=== PATIENT | female | born 1995 | race Caucasian/White ===

== ENCOUNTER 2017-04-10 08:41 | Emergency (ER) | payer MEDICAID, OTHER ==
[~2017-04-10] VITALS: Wt 104.5 kg
[~2017-04-10 08:41] MED LIST: ACET1TAB40 PO; ACET325T33 PO; DOCU-144 PO; FER325 PO; IBUP-1542 PO; NITR-58 PO; TRAM50TA2 PO
[2017-04-10] MEDS ORDERED: ALBUTEROL 0.083% (NEB) 2.5 MG/3 ML AMP NEB STA (08:55)
[2017-04-10] MEDS ORDERED: IPRATROPIUM (NEB) 0.5 MG/2.5 ML AMP NEB STA (08:55)
[2017-04-10] MEDS ORDERED: ALBU8.5H3 INH (08:59)
--- NOTE | 2017-04-10 08:59 | ERD ---
ER Documentation Chief Complaint Date/Time DATE: 04/10/17 TIME: 08:58 Chief Complaint cough w sob HPI 22-year-old female with a history of asthma comes in with a dry cough for the past month and shortness of breath. She states that she ran out of her rescue inhaler about a month ago. Patient reports that the symptoms are worse when she is laying down at nighttime. She has not had any fevers, chills, chest pain. ROS All systems reviewed and are negative except as per history of present illness. Medications Home Meds Active Scripts Albuterol Sulfate* (Proair HFA*) 8.5 Gm Hfa.aer.ad, 2 PUFF INH Q4, #1 INHALER Prov:NONI OROPEZA PA-C 04/10/17 Ibuprofen* (Motrin*) 600 Mg Tab, 600 MG PO Q6, #20 TAB Prov:MARK GONZALEZ NP 07/29/16 Nitrofurantoin Monohyd Macrocr* (Macrobid*) 100 Mg Capsr, 100 MG PO BID for 5 Days, CAP Prov:MARK GONZALEZ NP 07/29/16 Acetaminophen* (Tylenol*) 325 Mg Tablet, 2 TAB PO Q6 Y for PAIN AND OR ELEVATED TEMP, #20 TAB Prov:RYAN CASSIDY PA-C 05/30/16 Nitrofurantoin Monohyd Macrocr* (Macrobid*) 100 Mg Capsr, 100 MG PO BID for 7 Days, CAP Prov:RYAN CASSIDY PA-C 05/30/16 Docusate Sodium* (Colace*) 100 Mg Capsule, 100 MG PO TID, #30 CAP Prov:ANITA REESE NP 05/16/16 Ferrous Sulfate* (Ferrous Sulfate*) 325 Mg Tabec, 325 MG PO BID, #60 TAB Prov:ANITA REESE NP 05/16/16 Ibuprofen* (Motrin*) 600 Mg Tab, 600 MG PO Q6H Y for PAIN AND OR ELEVATED TEMP, #30 TAB Prov:ANITA REESE NP 05/16/16 Tramadol HCl (Tramadol HCl) 50 Mg Tablet, 50 MG PO Q6 Y for SEVERE PAIN LEVEL 7- 10, #20 TAB Prov:ANITA REESE NP 05/16/16 Acetaminophen-Codeine* (Acetaminophen-Cod #3*) 300-30 Mg Tab, 1 TAB PO Q4H Y for PAIN LEVEL 6-10, #15 TAB Prov:SABRINA VILLEGAS 02/25/15 Ibuprofen* (Motrin*) 600 Mg Tab, 600 MG PO Q6, #15 TAB Prov:LAVON VILLEGASA 15 Nitrofurantoin Monohyd Macrocr* (Macrobid*) 100 Mg Capsr, 100 MG PO BID for 14 Days, CAP Prov:LAVON VILLEGASA 02/25/15 Allergies Allergies: Coded Allergies: No Known Drug Allergies (Verified Allergy, Mild, 01/21/11) PMhx/Soc History of Surgery: No Anesthesia Reaction: No Hx Neurological Disorder: No Hx Respiratory Disorders: Yes (Asthma) Hx Cardiac Disorders: No Hx Psychiatric Problems: No Hx Miscellaneous Medical Probl: No Hx Alcohol Use: No Hx Substance Use: No Hx Tobacco Use: No Physical Exam Vitals Vital Signs Date Time Temp Pulse Resp B/P Pulse Ox O2 Delivery O2 Flow Rate FiO2 04/10/17 09:07 66 18 99 21 04/10/17 08:42 97.4 74 20 125/77 97 Physical Exam General: Well-developed, well-nourished. The patient appears in no acute distress. HEENT: Head is normocephalic, atraumatic. No scleral icterus. Neck: Supple. Nontender. Lungs: Clear to auscultation. Normal air movement. Nonlabored. Heart: Regular rate and rhythm. S1 and S2 are normal. No murmurs, gallops, or rubs. Abdomen: Nondistended. Extremities: No clubbing or cyanosis. Moving extremities x 4. No weakness. Neurologic: Alert and oriented 3. No focal deficits. Normal speech and gait. Skin: Normal turgor. No rash or lesions. Results 24 hrs Current Medications Medications (Trade) Dose Ordered Sig/Javy Route PRN Reason Start Time Stop Time Status Last Admin Dose Admin Albuterol (Proventil 0.083% (Neb)) 5 mg ONCE STAT NEB 04/10/17 08:55 04/10/17 08:57 DC 04/10/17 09:06 Ipratropium [place] (Atrovent 0.02% (Neb)) 0.5 mg ONCE STAT NEB 04/10/17 08:55 04/10/17 08:57 DC 04/10/17 09:06 DIAGNOSTIC IMAGING REPORT Patient: KAVON HOLLIDAY : 1995 Age: 22 Sex: F MR #: [id number] DOS: 04/10/17 0855 Ordering MD: NONI OROPEZA PA-C Location: [facility] Room/Bed: PROCEDURE: Chest Radiograph. CLINICAL INDICATION: Cough. Shortness of breath. TECHNIQUE: Single frontal chest radiograph. COMPARISON: Chest pain 12/25/2014 FINDINGS: The cardiomediastinal silhouette is within normal limits. No infiltrate or effusion is seen. The bones are intact. IMPRESSION: 1. Unremarkable chest radiograph. RPTAT: KK .Gucci Mullen MD, MD Date Time Electronically viewed and signed by .Gucci Mullen MD, on 2016 10:15 .B/ CC: NONI OROPEZA PA-C Procedures/MDM ED course: She was given albuterol 5 mg neb breathing treatment Atrovent 0.5 mg. Medical decision making: This 22-year-old female with history of asthma comes in with shortness breath, cough on and off for months now. Patient states that she feels much better at this time after the breathing treatment. She will be given a refill for albuterol. She does not have any signs of respiratory distress, no evidence of pneumonia, and cardiac silhouette is normal. Patient' s symptoms of shortness of breath at nighttime are likely related to her asthma symptoms. Departure Diagnosis: Primary Impression: Cough Additional Impression: Asthma Condition: Good NONI OROPEZA PA-C Apr 10, 2017 08:59
--- NOTE | 2017-04-10 10:15 | RADRPT ---
PROCEDURE: Chest Radiograph. CLINICAL INDICATION: Cough. Shortness of breath. TECHNIQUE: Single frontal chest radiograph. COMPARISON: Chest pain 12/25/2014 FINDINGS: The cardiomediastinal silhouette is within normal limits. No infiltrate or effusion is seen. Th e bones are intact. IMPRESSION: 1. Unremarkable chest radiograph. RPTAT: KK .Gucci Mullen MD, MD Date Time Electronically viewed and signed by .Gucci Mullen MD, on 04/10/2017 10:15 .B/
== END 2017-04-10 10:31 | disposition home or self-care (01) ==
LOC: FTE 08:41
DX: R05 Cough (principal); J45.909 Unspecified asthma, uncomplicated
CPT/HCPCS: 71010; 94664; Z7502; Z7610

== ENCOUNTER 2017-06-08 07:06 | Emergency (ER) | payer MEDICAID, OTHER ==
[~2017-06-08] VITALS: Ht 165.1 cm; Wt 104.5 kg
[~2017-06-08 07:06] MED LIST changes: +ALBU8.5H3 INH
[2017-06-08 07:09] VITALS: Ht 165.1 cm; Wt 104.5 kg
[2017-06-08] MEDS ORDERED: NPH10OT LEFT EAR (07:18)
--- NOTE | 2017-06-08 08:10 | ERD ---
ER Documentation Chief Complaint Date/Time DATE: 06/08/17 TIME: 08:08 Chief Complaint left ear pain x4 days, HPI 22-year-old female presents complaining of left ear pain rating it 7 out of 10 since the past 4 days. She states that it started off with some drainage but that has subsided. She states that she uses Q-tips. ROS All systems reviewed and are negative except as per history of present illness. Medications Home Meds Active Scripts Neomycin/Polymyxin/Hydrocort* (Cortisporin* Otic) 10 Ml Susp, 4 DROP LEFT EAR QID for 7 Days, EA Prov:RYAN CASSIDY PA-C 06/08/17 Albuterol Sulfate* (Proair HFA*) 8.5 Gm Hfa.aer.ad, 2 PUFF INH Q4, #1 INHALER Prov:NONI OROPEZA PA-C 04/10/17 Ibuprofen* (Motrin*) 600 Mg Tab, 600 MG PO Q6, #20 TAB Prov:MARK GONZALEZ NP 07/29/16 Nitrofurantoin Monohyd Macrocr* (Macrobid*) 100 Mg Capsr, 100 MG PO BID for 5 Days, CAP Prov:MARK GONZALEZ NP 07/29/16 Acetaminophen* (Tylenol*) 325 Mg Tablet, 2 TAB PO Q6 Y for PAIN AND OR ELEVATED TEMP, #20 TAB Prov:RYAN CASSIDY PA-C 05/30/16 Nitrofurantoin Monohyd Macrocr* (Macrobid*) 100 Mg Capsr, 100 MG PO BID for 7 Days, CAP Prov:RYAN CASSIDY PA-C 05/30/16 Docusate Sodium* (Colace*) 100 Mg Capsule, 100 MG PO TID, #30 CAP Prov:ANITA REESE NP 05/16/16 Ferrous Sulfate* (Ferrous Sulfate*) 325 Mg Tabec, 325 MG PO BID, #60 TAB Prov:ANITA REESE NP 05/16/16 Ibuprofen* (Motrin*) 600 Mg Tab, 600 MG PO Q6H Y for PAIN AND OR ELEVATED TEMP, #30 TAB Prov:ANITA REESE NP 05/16/16 Tramadol HCl (Tramadol HCl) 50 Mg Tablet, 50 MG PO Q6 Y for SEVERE PAIN LEVEL 7- 10, #20 TAB Prov:ANITA REESE PARTS FINISHER 05/16/16 Acetaminophen-Codeine* (Acetaminophen-Cod #3*) 300-30 Mg Tab, 1 TAB PO Q4H Y for PAIN LEVEL 6-10, #15 TAB Prov:CHO,SABRINA 02/25/15 Ibuprofen* (Motrin*) 600 Mg Tab, 600 MG PO Q6, #15 TAB Prov:CHO,SABRINA 15 Nitrofurantoin Monohyd Macrocr* (Macrobid*) 100 Mg Capsr, 100 MG PO BID for 14 Days, CAP Prov:CHO,SABRINA 02/25/15 Allergies Allergies: Coded Allergies: No Known Drug Allergies (Verified Allergy, Mild, 01/21/11) PMhx/Soc Medical and Surgical Hx: pt denies Medical Hx, pt denies Surgical Hx History of Surgery: No Anesthesia Reaction: No Hx Neurological Disorder: No Hx Respiratory Disorders: Yes (Asthma) Hx Cardiac Disorders: No Hx Psychiatric Problems: No Hx Miscellaneous Medical Probl: No Hx Alcohol Use: No Hx Substance Use: No Hx Tobacco Use: No Physical Exam Vitals Vital Signs Date Time Temp Pulse Resp B/P Pulse Ox O2 Delivery O2 Flow Rate FiO2 06/08/17 07:09 97.8 74 20 133/83 98 Physical Exam Const: [] Head: Atraumatic Eyes: Normal Conjunctiva ENT: Positive tragus tenderness on the left, erythematous canal no drainage Neck: Full range of motion..~ No meningismus. Resp: Clear to auscultation bilaterally Cardio: Regular rate and rhythm, no murmurs Abd: Soft, non tender, non distended. Normal bowel sounds Skin: No petechiae or rashes Back: No midline or flank tenderness Ext: No cyanosis, or edema Neur: Awake and alert Psych: Normal Mood and Affect Procedures/MDM 22-year-old female presents complaining of left ear pain for the past 4 days likely otitis externa. No evidence of ruptured tympanic membrane, otitis media. Patient appears well and stable to be discharged home with prescription for Cortisporin. She understands and agrees this plan Departure Diagnosis: Primary Impression: Otitis externa Condition: Stable Patient Instructions: External Ear Infection (Adult) Additional Instructions: Return to this facility if you are not improving as expected.Take all medicines as directed.FOLLOW UP WITH YOUR PRIMARY CARE PHYSICIAN TOMORROW.Return to this facility if you are not improving as expected. RYAN CASSIDY PA-C Jun 08, 2017 08:10
== END 2017-06-08 08:34 | disposition home or self-care (01) ==
LOC: FTE 07:06
DX: H60.92 Unspecified otitis externa, left ear (principal); J45.909 Unspecified asthma, uncomplicated
CPT/HCPCS: 99283

== ENCOUNTER 2017-08-12 00:36 | Emergency (ER) | payer SELFPAY ==
[~2017-08-12] VITALS: Ht 167.6 cm; Wt 103.8 kg
[~2017-08-12 00:36] MED LIST changes: +NPH10OT LEFT EAR
[2017-08-12 00:44] VITALS: Ht 167.6 cm; Wt 103.8 kg
== END 2017-08-12 03:46 | disposition left against medical advice (07) ==
LOC: FTE 00:36
DX: Z53.21 Procedure and treatment not carried out due to patient leaving prior to being seen by health care provider (principal)

== ENCOUNTER 2017-09-24 23:17 | Emergency (ER) | END 2017-09-25 05:08 | disposition home or self-care (01) ==

== ENCOUNTER 2017-09-29 22:29 | Emergency (ER) | END 2017-09-30 02:03 | disposition home or self-care (01) ==

== ENCOUNTER → 2018-01-22 | Emergency (ER) | END | disposition home or self-care (01) ==

== ENCOUNTER 2018-03-17 22:39 | Emergency (ER) | END 2018-03-18 01:49 | disposition left against medical advice (07) ==

== ENCOUNTER 2019-04-19 11:41 | Emergency (ER) | payer OTHER ==
[~2019-04-19] VITALS: Ht 162.6 cm; Wt 110.1 kg
[~2019-04-19 11:41] MED LIST changes: -ALBU8.5H3 INH; +ALBU8.5H8 INH; +CEPH-443 PO; +CEPH250S33 PO; +NAPR-985 PO; +PHEN-538 PO; +PRED20TA PO; +PROM6.2515 PO; +SODI126M NASAL
[2019-04-19 11:49] VITALS: BP 135/78; PULSE 64; RESP 18; Ht 162.6 cm; Wt 110.1 kg
[2019-04-19] MEDS ORDERED: KETOROLAC 30 MG INJ IV STA (12:19)
--- NOTE | 2019-04-19 12:32 | ERD ---
ER Documentation Chief Complaint Chief Complaint LOWER ABD PAIN SINCE FRIDAY. HEAVY MENSES SINCE March. HPI 24-year-old female G1, P1 with no reported past medical surgical history, history of ovarian cyst, menorrhagia who presents with complaint of bilateral pelvic pain since Friday. Describes severe sharp diffuse pain to bilateral pelvis without radiation to flanks, not associated with nausea or vomiting, fevers or chills. Has been having heavy menstrual bleeding since March 22 with passage of clots intermittently more recently. Saw her PMD and prescribed oral contraceptives last week and has taken approximately 8 days of medication without improvement in bleeding symptoms. States she is gone through several pads per day and reports use of possibly 7 pads since 6 AM this morning. Otherwise denies chest pain, shortness of breath, dyspnea, urinary symptoms such as dysuria, diarrhea, constipation or any other concerning symptoms. Was last sexually active back in October and currently not sexually active. No history of STDs. ROS All systems reviewed and are negative except as per history of present illness. Medications Home Meds Active Scripts Ibuprofen* (Motrin*) 600 Mg Tab, 600 MG PO Q6, #30 TAB Prov:MARILIN VELASCO PA-C 04/19/19 Tramadol HCl (Tramadol HCl) 50 Mg Tablet, 50 MG PO Q4 PRN for PAIN, #20 TAB Prov:MARILIN VELASCO PA-C 04/19/19 Naproxen* (Naprosyn*) 500 Mg Tablet, 500 MG PO BID PRN for PAIN AND/OR INFLAMMATION, #30 TAB Prov:CRISTINA MOLINA PA-C 10/29/18 Promethazine Hcl* (Promethazine Hcl* Syrup) 6.25 Mg/5 Ml Syrup, 6.25 MG PO Q6H PRN for COUGH, #100 ML Prov:CRISTINA MOLINA PA-C 10/29/18 Prednisone* (Prednisone*) 20 Mg Tab, 40 MG PO DAILY for 4 Days, TAB Prov:CRISTINA MOLINA PA-C 10/29/18 Albuterol Sulfate* (Proair HFA*) 8.5 Gm Hfa.aer.ad, 2 PUFF INH Q4, #1 INHALER Prov:CRISTINA MOLINA PA-C 10/29/18 Sodium Chloride (Saline Nasal Mist) 126 Ml Mist, 2 SPRAY NASAL Q2H PRN for NASAL CONGESTION, #1 BOTTLE Prov:CHRISTIE EATON Vivien. CREDENTIALING ANALYST 01/22/18 Ibuprofen* (Motrin*) 600 Mg Tab, 600 MG PO Q6H PRN for PAIN AND OR ELEVATED TEMP, #30 TAB Prov:UMA,CHRISTEI Vivien. CREDENTIALING ANALYST 01/22/18 Cephalexin* (Keflex*) 500 Mg Capsule, 500 MG PO TID for 7 Days, #21 CAP Prov:KENISHA HECTORC 09/30/17 Phenazopyridine Hcl* (Pyridium*) 200 Mg Tab, 200 MG PO TID PRN for URINARY PAIN, #20 TAB Prov:RYAN CASSIDY PA-C 09/25/17 Cephalexin* (Cephalexin* Susp) 250 Mg/5 Ml Susp.recon, 5 ML PO TID for 10 Days, BOTTLE Prov:RYAN CASSIDY PA-C 09/25/17 Neomycin/Polymyxin/Hydrocort* (Cortisporin* Otic) 10 Ml Susp, 4 DROP LEFT EAR QID for 7 Days, EA Prov:RYAN CASSIDY PA-C 06/08/17 Albuterol Sulfate* (Proair HFA*) 8.5 Gm Hfa.aer.ad, 2 PUFF INH Q4, #1 INHALER Prov:NONI OROPEZA PA-C 04/10/17 Ibuprofen* (Motrin*) 600 Mg Tab, 600 MG PO Q6, #20 TAB Prov:MARK GONZALEZ NP 07/29/16 Nitrofurantoin Monohyd Macrocr* (Macrobid*) 100 Mg Capsr, 100 MG PO BID for 5 Days, CAP Prov:MARK GONZALEZ NP 07/29/16 Acetaminophen* (Tylenol*) 325 Mg Tablet, 2 TAB PO Q6 PRN for PAIN AND OR ELEVATED TEMP, #20 TAB Prov:RYAN CASSIDY PA-C 05/30/16 Nitrofurantoin Monohyd Macrocr* (Macrobid*) 100 Mg Capsr, 100 MG PO BID for 7 Days, CAP Prov:RYAN CASSIDY PA-C 05/30/16 Docusate Sodium* (Colace*) 100 Mg Capsule, 100 MG PO TID, #30 CAP Prov:MARY ANNANITA BOATENGLilo Nicolas CREDENTIALING ANALYST 05/16/16 Ferrous Sulfate* (Ferrous Sulfate*) 325 Mg Tabec, 325 MG PO BID, #60 TAB Prov:MARY ANNANITA BOATENG Maria Isabel CREDENTIALING ANALYST 05/16/16 Ibuprofen* (Motrin*) 600 Mg Tab, 600 MG PO Q6H PRN for PAIN AND OR ELEVATED TEMP, #30 TAB Prov:GARETTKGANITADat Nicolas CREDENTIALING ANALYST 05/16/16 Tramadol HCl (Tramadol HCl) 50 Mg Tablet, 50 MG PO Q6 PRN for SEVERE PAIN LEVEL 7-10, #20 TAB Prov:GARETTANITA SAUL CREDENTIALING ANALYST 05/16/16 Acetaminophen-Codeine* (Acetaminophen-Cod #3*) 300-30 Mg Tab, 1 TAB PO Q4H PRN for PAIN LEVEL 6-10, #15 TAB Prov:CHO,SABRINA 02/25/15 Ibuprofen* (Motrin*) 600 Mg Tab, 600 MG PO Q6, #15 TAB Prov:CHO,SABRINA 02/25/15 Nitrofurantoin Monohyd Macrocr* (Macrobid*) 100 Mg Capsr, 100 MG PO BID for 14 Days, CAP Prov:CHO,SABRINA 02/25/15 Allergies Allergies: Coded Allergies: No Known Drug Allergies (Verified Allergy, Mild, 03/17/18) PMhx/Soc History of Surgery: No Anesthesia Reaction: No Hx Neurological Disorder: No Hx Respiratory Disorders: Yes (ASTHMA) Hx Cardiac Disorders: No Hx Psychiatric Problems: No Hx Miscellaneous Medical Probl: No Hx Alcohol Use: No Hx Substance Use: No Hx Tobacco Use: No FmHx Family History: No diabetes, No coronary disease, No other Physical Exam Vitals Vital Signs Date Temp Pulse Resp B/P (MAP) Pulse Ox O2 O2 Flow FiO2 Time Delivery Rate 04/19/19 97.5 64 18 135/78 98 11:49 (97) Physical Exam I have reviewed the triage vital signs. Const: Well nourished, well developed, appears stated age Eyes: PERRL, no conjunctival injection HENT: NCAT, Neck supple without meningismus CV: RRR, Warm, well-perfused extremities RESP: CTAB, Unlabored respiratory effort GI: soft, tender along pelvis to palpation, no rebound or guarding, no flank tenderness, non-distended, no masses, appropriate bowel sounds MSK: No gross deformities appreciated Skin: Warm, dry. No rashes Neuro: grossly non focal Psych: Appropriate mood and affect. Result Diagram: 04/19/19 1234 04/19/19 1234 Results 24 hrs Laboratory Tests Test 04/19/19 12:19 04/19/19 12:27 04/19/19 12:34 POC Beta HCG, Qualitative NEGATIVE Urine Color YELLOW Urine Clarity TURBID Urine pH 6.0 Urine Specific [place] 1.028 Urine Ketones TRACE mg/dL Urine Nitrite NEGATIVE mg/dL Urine Bilirubin NEGATIVE mg/dL Urine Urobilinogen NEGATIVE mg/dL Urine Leukocyte Esterase 1+ Vitor/ul Urine Microscopic RBC > 182 /HPF Urine Microscopic WBC 6 /HPF Urine Mucus FEW /HPF Urine Hemoglobin 3+ mg/dL Urine Glucose 1+ mg/dL Urine Total Protein 2+ mg/dl White Blood Count 8.7 10^3/ul Red Blood Count 4.20 10^6/ul Hemoglobin 11.9 g/dl Hematocrit 36.7 % Mean Corpuscular Volume 87.4 fl Mean Corpuscular Hemoglobin 28.3 pg Mean Corpuscular 32.4 g/dl Hemoglobin Concent Red Cell Distribution Width 13.6 % Platelet Count 295 10^3/UL Mean Platelet Volume 10.7 fl Immature Granulocytes % 0.200 % Neutrophils % 69.6 % Lymphocytes % 21.4 % Monocytes % 7.9 % Eosinophils % 0.6 % Basophils % 0.3 % Nucleated Red Blood Cells % 0.0 /100WBC Immature Granulocytes # 0.020 10^3/ul Neutrophils # 6.1 10^3/ul Lymphocytes # 1.9 10^3/ul Monocytes # 0.7 10^3/ul Eosinophils # 0.1 10^3/ul Basophils # 0.0 10^3/ul Nucleated Red Blood Cells # 0.0 10^3/ul Sodium Level 142 mmol/L Potassium Level 3.9 mmol/L Chloride Level 108 mmol/L Carbon Dioxide Level 26 mmol/L Anion Gap 8 Blood Urea Nitrogen 12 mg/dl Creatinine 0.53 mg/dl Est Glomerular Filtrat > 60 mL/min Rate mL/min Glucose Level 85 mg/dl Calcium Level 9.0 mg/dl Lipase 42 U/L Current Medications Medications Dose Sig/Javy Start Time Status Last (Trade) Ordered Route PRN Stop Time Admin Dose Reason Admin Ketorolac 30 mg ONCE STAT 04/19/19 DC 04/19/19 Tromethamine IV 12:19 12:49 (Toradol) 04/19/19 12:22 Procedures/MDM 24 yo non- woman presenting with abdominal pain. Given patients test is negative, highly doubt ectopic . Considered causes of female-specific abdominal pain unrelated to (e.g., pelvic inflammatory disease with or without tubo-ovarian abscess, [id number], etc.). Also considered causes of abdominal pain that are not gender-specific (e.g., appendicitis, volvulus, small bowel obstruction, mesenteric adenitis, acute cholecystitis/choledocholithiasis and other biliary pathology, etc.). Patient well-appearing with normal vital signs. Laboratory testing and imaging here reviewed and normal. Patient given strict return precautions for worsening pain, inability to eat/drink, fevers (temperature over 100.4F), or other concerns. Patient instructed to follow up with their primary doctor and is agreeable; all questions were answered. ED course: Pelvic ultrasound without acute finding UA unremarkable Labs unremarkable, lipase within normal limits Discharge with appropriate pain medications, advised patient to follow-up with PMD, strict return precautions explained in detail. DISPOSITION PLAN: We discussed follow up with the patient's primary care doctor within 24 to 48 hours. Patient counseled regarding my diagnostic impression and care plan. Prior to discharge all questions answered. Pt agrees with treatment plan and understands strict return precautions. Precautionary instructions provided including instructions to return to the ER if not improving or for any worsening or changing symptoms or concerns. Disclaimer: Inadvertent spelling and grammatical errors are likely due to EHR/dictation software use and do not reflect on the overall quality of patient care. Also, please note that the electronic time recorded on this note does not necessarily reflect the actual time of the patient encounter. Departure Diagnosis: Primary Impression: Pelvic pain Condition: Stable Patient Instructions: Pelvic Pain, Unknown Cause Additional Instructions: Call your primary care doctor TOMORROW for an appointment during the next 2-3 days.See the doctor sooner or return here if your condition worsens before your appointment time. MARILIN VELASCO PA-C Apr 19, 2019 12:31
[2019-04-19] MEDS ORDERED: IBUP-1542 PO (14:02)
[2019-04-19] MEDS ORDERED: TRAM50TA2 PO (14:02)
== END 2019-04-19 15:07 | disposition home or self-care (01) ==
LOC: FTE 11:41
DX: R10.2 Pelvic and perineal pain (principal); J45.909 Unspecified asthma, uncomplicated
CPT/HCPCS: 76830; 76856; 80048; 81001; 81025; 83690; 85025; 86850; 86900; 86901; J1885; 36415; 96374